=== PATIENT | female | born 1975 | race African-American/Black ===

== ENCOUNTER 2020-07-16 03:51 | Emergency (ER) | payer MEDICAID, OTHER ==
[~2020-07-16] VITALS: Ht 170.2 cm; Wt 106.0 kg
[2020-07-16] MEDS ORDERED: SODIUM CHLORIDE 0.9% 1,000 ML IV ONE (04:58)
[2020-07-16] MEDS ORDERED: ONDANSETRON HCL 4MG/2ML INJ IV STA ×2 (04:58→09:53)
[2020-07-16 05:15] LABS: HEMATOCRIT. 42.6 % (36.0-48.0); HEMOGLOBIN. 14.1 g/dL (12.0-16.0); MEAN CORPUSCULAR HEMOGLOBIN 29.7 pg (28.0-32.0); MEAN CORPUSCULAR VOLUME 90.1 fL (81.0-99.0); MEAN PLATELET VOLUME 8.7 fl (7.4-10.4); PLATELET 255 x1000/uL (130-400); RED BLOOD CELL COUNT 4.73 mill/uL (4.2-5.4); RED CELL DISTRIBUTION WIDTH 15.8 % (11.6-14.6)
[2020-07-16 05:23] LABS: CHLORIDE 104 mEq/L (98-107)
[2020-07-16 05:29] LABS: ETHANOL BLOOD 11 mg/dL
[2020-07-16] MEDS ORDERED: ASPIRIN 81MG TABLET PO ONE (06:30)
[2020-07-16] MEDS: NITROGLYCERIN 0.4MG TABLET SL SL PRN ×2 (06:31→08:55)
[2020-07-16 06:33] LABS: PLATELET ESTIMATE NORMAL
[2020-07-16 07:29] LABS: CLARITY URINE CLEAR (CLEAR); COLOR URINE YELLOW (YELLOW); KETONES URINE 4+ (NEGATIVE); LEUKOCYTE ESTERASE URINE 2+ (NEGATIVE); NITRITE URINE NEGATIVE (NEGATIVE); OCCULT BLOOD URINE NEGATIVE (NEGATIVE); PROTEIN URINE TRACE (NEGATIVE); SPECIFIC GRAVITY URINE 1.023 (1.005-1.030); UROBILINOGEN URINE 0.2 E.U./dL (0.2-1.0)
[2020-07-16 07:50] LABS: *BARBITURATES SCREEN URINE NEGATIVE (NEGATIVE); *BENZODIAZEPINES SCREEN URINE NEGATIVE (NEGATIVE); *COCAINE SCREEN URINE NEGATIVE (NEGATIVE); METHADONE URINE SCREEN NEGATIVE (NEGATIVE)
[2020-07-16 07:51] LABS: CANNABINOID URINE SCREEN NEGATIVE (NEGATIVE); OPIATES URINE SCREEN NEGATIVE (NEGATIVE); PHENCYCLIDINE URINE SCREEN NEGATIVE (NEGATIVE)
[2020-07-16 07:56] LABS: *AMPHETAMINES SCREEN URINE PRESUMTIVE POSITIVE (NEGATIVE)
[2020-07-16] MEDS ORDERED: FAMOTIDINE 20MG/2ML VIAL IV ONE (08:45)
[2020-07-16] MEDS ORDERED: LEVOFLOXACIN 500MG PREMIX 100 ML IV ONE (08:45)
[2020-07-16] MEDS ORDERED: MORPHINE SULFATE 4 MG/ML CPJ (NOT FOR IM USE) IV STA (09:53)
[2020-07-16] MEDS ORDERED: MORPHINE SULFATE 4 MG/ML CPJ (NOT FOR IM USE) IV ONE (11:15)
[2020-07-16 12:45] VITALS: BP 138/84
== END 2020-07-16 13:19 | disposition short-term general hospital (02) ==
LOC: ER 04:31
DX: R07.89 Other chest pain (principal); N39.0 Urinary tract infection, site not specified; D72.829 Elevated white blood cell count, unspecified; F15.129 Other stimulant abuse with intoxication, unspecified; Z88.0 Allergy status to penicillin
CPT/HCPCS: 36415; 71045; 80053; 80305; 80320; 81003; 84484; 85025; 87086; 93005; 96361; 96374; 96375; 96376; 99285; J1956; J2270; J2405; J3490; J7030; Z7610; G0480

== ENCOUNTER 2020-07-16 21:28 | Emergency (ER) | payer MEDICAID ==
[~2020-07-16] VITALS: Ht 167.6 cm; Wt 87.0 kg
[2020-07-16 21:32] VITALS: BP 145/94
[2020-07-16] MEDS ORDERED: DEXAMETHASONE 4MG/ML 1ML VIAL IM ONE (22:45)
[2020-07-16] MEDS ORDERED: DEXAMETHASONE 4MG/ML 1ML VIAL IM NR (22:45)
[2020-07-16] MEDS ORDERED: DIPHENHYDRAMINE 25MG CAPSULE PO NR (23:30)
[2020-07-16] MEDS ORDERED: ACETAMINOPHEN WITH CODEINE 300/30MG TABLET PO NR (23:30)
== END 2020-07-17 00:29 | disposition home or self-care (01) ==
LOC: ER 21:28
DX: T78.40XA Allergy, unspecified, initial encounter (principal); Z88.0 Allergy status to penicillin; X58.XXXA Exposure to other specified factors, initial encounter
CPT/HCPCS: 96372; 99283; J1100; Q0163